=== PATIENT | male | born 1995 | race African-American/Black ===

== ENCOUNTER 2021-10-30 11:31 | Emergency (ER) | payer MEDICAID ==
[~2021-10-30] VITALS: Ht 165.1 cm; Wt 77.0 kg
[2021-10-30 15:21] LABS: EOSINOPHILS % 4.3 % (0.0-5.0); HEMATOCRIT. 42.6 % (42.0-52.0); HEMOGLOBIN. 14.5 g/dL (14.0-18.0); MEAN CORPUSCULAR HEMOGLOBIN 29.3 pg (28.0-32.0); MEAN PLATELET VOLUME 8.2 fl (7.4-10.4); MONOCYTES % 6.7 % (2.0-8.0); PLATELET 219 x1000/uL (130-400); RED BLOOD CELL COUNT 4.95 mill/uL (4.7-6.1)
[2021-10-30 15:31] LABS: CHLORIDE 106 mEq/L (98-107)
[2021-10-30] MEDS ORDERED: KETOROLAC 60MG/2ML VIAL IM ONE (16:30)
[2021-10-30 16:45] VITALS: BP 121/60
== END 2021-10-30 16:47 | disposition home or self-care (01) ==
LOC: ER 12:36
DX: R07.89 Other chest pain (principal)
CPT/HCPCS: 36415; 71045; 80053; 84484; 85025; 93005; 99285